=== PATIENT | male | born 1940 | race Hispanic/Latino ===

== ENCOUNTER 2019-04-04 10:17 | Outpatient (CLI) | payer MEDICARE ==
--- NOTE | 2019-04-04 12:02 | BD ---
DEXA BONE DENSITY SCAN: DATE: 04/04/2019. COMPARISON: None. HISTORY: Postmenopausal female undergoing screening for osteoporosis. FINDINGS: Lumbar Spine: BMD (g/cm2) L1 0.996 T-Score: -0.7 L2 1.042 T-Score: -0.5 L3 1.127 T-Score: 0.2 L4 1.148 T-Score: 0.5 L1-L4 1.081 T-Score: -0.1 Femoral Neck: 0.690 T-Score: -1.8 Total Femur: 0.756 T-Score: -1.8 FRAX-WHO fracture risk assessment tool reports a 10-year fracture risk in an untreated patient of 12% for major osteoporotic fracture and 4.1% for hip fracture. IMPRESSION: Normal lumbar spine bone mineral density. Osteopenia within the femoral neck/proximal femur correlati ng with a moderately increased risk for fracture. Transcribed Date/Time: 04/04/2019 12:16 PM
== END 2019-04-04 10:18 | disposition home or self-care (01) ==
LOC: BICMAMMO 10:17
PROVIDERS: ATTEND Family Medicine
DX: M85.859 Other specified disorders of bone density and structure, unspecified thigh (principal); M54.16 Radiculopathy, lumbar region; M25.859 Other specified joint disorders, unspecified hip
CPT/HCPCS: 77080